=== PATIENT | female | born 1995 ===

== ENCOUNTER 2025-01-05 10:47 | Inpatient (IN) | payer OTHER ==
[~2025-01-05] VITALS: Ht 190.5 cm; Wt 77.5 kg
[2025-01-05] MEDS ORDERED: HydrOXYzine Pamoate 50 MG Cap PO PRN (11:10)
[2025-01-05] MEDS ORDERED: DiphenhydrAMINE HCl 50 MG Cap PO PRN (11:15)
[2025-01-05] MEDS ORDERED: Acetaminophen 325 MG TABLET PO PRN (11:15)
[2025-01-05] MEDS ORDERED: Haloperidol 5 MG Tab PO PRN (11:15)
[2025-01-05] MEDS ORDERED: DiphenhydrAMINE HCl 50 MG/ML 1ML Vial IV PRN (11:15)
[2025-01-05] MEDS ORDERED: Calcium Carbonate 500 MG Tab Chew PO PRN (11:15)
[2025-01-05] MEDS ORDERED: Aluminum Hydroxide 320MG/5ML 473 ML PO PRN (11:15)
[2025-01-05] MEDS ORDERED: Haloperidol Lactate Inj. 5 MG/ML Injection IM PRN (11:15)
[2025-01-05] MEDS ORDERED: Polyethylene Glycol 3350 17 gm PO PRN (11:20)
[2025-01-05] MEDS ORDERED: TraZODone HCl 50 MG Tab PO PRN (11:20)
[2025-01-05] MEDS ORDERED: OLANZapine ODT 10 MG Tab MM PRN (11:20)
[2025-01-05] MEDS ORDERED: Melatonin 3 MG Tab PO PRN (11:20)
[2025-01-05] MEDS ORDERED: LORazepam 2 MG/ML 1ML Injection IM PRN (11:20)
[2025-01-05] MEDS ORDERED: Ibuprofen 600 MG Tab PO PRN (11:25)
[2025-01-05] MEDS ORDERED: LORazepam 2 MG Tab PO PRN (11:25)
[2025-01-05 14:00] VITALS: BP 104/66
[2025-01-05] MEDS ORDERED: Ondansetron 4 MG SoluTab MM PRN (14:25)
[2025-01-05] MEDS ORDERED: ACEBUTOLOL HCL PO (14:36)
[2025-01-05] MEDS ORDERED: HYDHCL25 PO (14:36)
[2025-01-05] MEDS ORDERED: PROG100 PO (14:37)
[2025-01-05] MEDS ORDERED: SERT50 PO (14:37)
[2025-01-05] MEDS ORDERED: ESTR2 PO (14:38)
[2025-01-05] MEDS ORDERED: ALDACTONE100 MG PO (14:39)
--- NOTE | 2025-01-05 15:06 | NUR ---
ADMISSION NOTE PT ADMITTED FROM [facility]. PT ATTEMPTED SUICIDE BY SWALLOWING 50+ OF HER ACEBUTOLOL. SHE LEFT A NOTE FOR HER TO NOT COME IN THE BATHROOM AND TO JUST CALL AN AMBULANCE. PT'S FOUND PT AND CALLED IN TIME. PT HAS A HX OF ATTEMPTING SUICIDE 6 YEARS AGO AND HAS RECENTLY BEEN EXPERIENCING SEVERAL STRESSORS. PT LOST HER JOB AT [employer] DUE TO HEALTH REASONS AND WAS DENIED UNEMPLOYMENT. SHE HAS BEEN STRUGGLING TO PAY RENT AND FEELS LIKE A BURDEN. 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 SHE LIVES WITH HER BUT HAS ANOTHER SIGNIFICANT OTHER THAT DOES NOT LIVE IN THE HOUSE. SIGNIFICANT OTHER AND HELPED COVER THE PATIENT'S PORTION OF THE RENT BUT UNFORTUNATELY IT WAS STILL NOT ENOUGH. THE COMBINATION OF STRESSORS IS WHAT LED HER TO ATTEMPT. PT ORIENTED TO THE UNIT AND SHOWERED UPON ARRIVAL.
[2025-01-05 20:17] VITALS: BP 103/75
--- NOTE | 2025-01-06 06:15 | NUR ---
SHIFT SUMMARY Pt is A&O, calm, cooperative, eye contact is appropriate. Pt stated her mood was "numb," presents as sad and depressed, affet is constricted. Pt denies current SI, HI, hallucinations, and pain. Second Operator interviewed pt in her room. After assessment, pt asked to watch TV. She ate a snack with peers, had VS taken, and returned to her room. Pt has no sked HS meds, but did ask for PRN melatonin and trazodone. Staff continues to monitor q15m for safety and wellness.
[2025-01-06 07:37] LABS: CHOL/HDL RATIO 2.9; Cholesterol 149 mg/dL (50-200); HDL Cholesterol 52 mg/dL (>39); LDL/HDL RATIO 1.5; Low Density Lipoprotein Chol 78 mg/dL (0-110); Triglycerides 94 mg/dL (30-140); Very Low Density Lipoprot Chol 18 mg/dL (6-28)
[2025-01-06 08:36] VITALS: BP 100/61
[2025-01-06] MEDS ORDERED: Multivitamins 1 Tab PO SCH (09:00)
--- NOTE | 2025-01-06 18:20 | NUR ---
SHIFT SUMMARY PT A/O X4; PLEASANT AND COOPERATIVE WITH CARE. SHE DENIES SI, HI, OR ANY HALLUCINATIONS. HER AFFECT IS FLAT/DEPRESSED AND SHE REPORTS THAT SHE STILL FEELS "NUMB". SHE HAS BEEN ACTIVE ON THE MILEU THIS SHIFT AND VISITED WITH HER . SHE IS MONITORED VIA Q15 ROUNDING FOR SAFETY AND WELLNESS.
[2025-01-06 20:29] VITALS: BP 123/73
[2025-01-06] MEDS ORDERED: Progesterone, Micronized 100 MG Cap PO SCH (21:00)
--- NOTE | 2025-01-07 05:33 | NUR ---
SHIFT SUMMARY Pt is A&O, calm, cooperative, eye contact is appropriate. Pt states that her mood is "tired," but better than it has been. Pt denies SI, HI, hallucinations, and current pain. Pt stated that she if feeling better that she did at admission and earlier in the day. She stated that her depression has improved from 9/10w yesterda to 8/10w this evening. Pt reports that her last BM was 01/03/25 and said she will request a PRN for constipation in the morning; technical writer and editor will pass this on during shift change. Provider has restarted pt's hormone meds, for which she is grateful. Pt was out of her room for snack, VS, and meds. She received PRN melatonin and trazodone with her HS meds. Staff continues to monitor q15m for safety and wellness.
[2025-01-07 08:08] VITALS: BP 107/69
--- NOTE | 2025-01-07 08:26 | NUR ---
SHIFT ASSESSMENT: PT DENIED SI, HI, AVH AND PAIN. SHE ENDORSED ANXIETY 5/10w AND DESCRIBED HER MOOD , "I'M DEPRESSED." AND RATED THE DEPRESSIONS 8/10w. PT'S AFFECT WAS CONGRUENT WITH STATED MOOD. PT IS PRESENTLY TAKING A SHOWER.
[2025-01-07] MEDS ORDERED: ARIPiprazole 5 MG Tab PO SCH (09:00)
[2025-01-07] MEDS ORDERED: Spironolactone 50 MG Tab PO SCH (09:00)
[2025-01-07] MEDS ORDERED: Atenolol 50 MG Tab PO SCH (09:00)
[2025-01-07] MEDS ORDERED: Sertraline HCl 100 MG Tab PO SCH (09:00)
[2025-01-07] MEDS ORDERED: Estradiol 1 MG Tab PO SCH (09:00)
--- NOTE | 2025-01-07 15:02 | NUR ---
PT COMPLAINED EARLIER OF DISCOMFORT ABOUT EATING BUT DENIED NAUSEA. PT REPORTED THAT THE STOMACH DISCOMFORT IS GONE AND IS JUST FEELING TIRED. PT IS LAYING IN BED READING.
--- NOTE | 2025-01-07 18:05 | NUR ---
PT ATE DINNER AND IS PRESENTLY LAYING ON HER BED. NO COMPLAINTS THIS AFTERNOON.
[2025-01-07 20:11] VITALS: BP 124/70
--- NOTE | 2025-01-08 04:58 | NUR ---
BELL VALET SUMMARY Patient is alert and oriented, cooperative and pleasant with both her peers and the staff. Affect goes between euthymic and flat. Denied SI,HI and AVTH at time of evening assessment. Will continue close monitoring every 15 minutes for safety and comfort
[2025-01-08 07:18] VITALS: BP 103/70
[2025-01-08 08:47] VITALS: BP 110/71
[2025-01-08] MEDS ORDERED: ARIPiprazole 10 MG Tab PO SCH (09:00)
[2025-01-08] MEDS ORDERED: Spironolactone 50 MG Tab PO SCH (18:00)
[2025-01-08 19:49] VITALS: BP 117/86
[2025-01-08] MEDS ORDERED: Sertraline HCl 100 MG Tab PO SCH (21:00)
[2025-01-08] MEDS ORDERED: OLANZapine 10 MG Tab PO SCH (21:00)
--- NOTE | 2025-01-09 04:22 | NUR ---
SHIFT SUMMARY: PATIENT WAS IN THE DAY ROOM AT THE BEGINNING OF THE SHIFT, WATCHING A MOVIE WITH STAFF AND PEERS. SHE PARTICIPATED IN SNACK TIME AND WRAP UP GROUP. SHE WAS COMPLIANT WITH EVENING MEDICATIONS. SHE WAS PLEASANT AND FRIENDLY WITH STAFF AND PEERS. SHE HAD NO ISSUES OR CONCERNS THIS SHIFT. SHE DENIED THOUGHTS OF SUICIDAL IDEATION OR SELF HARMING. SHE WENT TO HER ROOM AFTER SNACK AND TOOK A SHOWER, THEN WENT TO BED WHERE SHE WAS NOTED TO BE RESTING QUIETLY WITH EYES CLOSED AND RESPIRATIONS CONFIRMED FOR THE REMAINDER OF THE SHIFT. CONTINUING TO MONITOR FOR SAFETY WITH Q15 MINUTE CHECKS.
[2025-01-09 08:30] VITALS: BP 120/80
--- NOTE | 2025-01-09 14:26 | NUR ---
IMPORTANT DISCHARGE INFORMATION PATIENT HAS FOLLOW UP PCP/TD APPOINTMENT ON Tuesday01/17/[address] MAGALI STEWARD AT 2:20PM. LOCATED AT [facility]. PHARMACY: [facility] JEWELRY FINISHER AT 1:00PM
--- NOTE | 2025-01-09 17:38 | NUR ---
SHIFT SUMMARY: PT A/O X4. PLEASANT AND COOPERATIVE. PT HAS PARTICIPATED IN GROUPS AND INTERACTED WELL WITH PEERS IN THE [place]. DENIES TO BE SI, HI AND AVH. ANXIETY LEVEL IS 3/10 AND DEPRSSION LEVEL IS 5/10. COMPLIANT IN MEALS AND MEDS. HAS BEEN READING HER BOOKS WHEN OT IN GROUPS. PT STATES SHE IS GETTING BETTER. TALKED WITH ON THE PHONE. WILL CONTINUE TO MONITOR
[2025-01-09] MEDS ORDERED: Spironolactone 50 MG Tab PO SCH (18:00)
[2025-01-09 19:59] VITALS: BP 111/81
[2025-01-09] MEDS ORDERED: Sertraline HCl 100 MG Tab PO SCH (21:00)
--- NOTE | 2025-01-10 04:21 | NUR ---
SHIFT SUMMARY PT PRESENT IN [place] AT START OF SHIFT. SHE STATES HER MOOD IS "GOOD". DENIES ANY SI, HI, THOUGHTS OF SELF HARM OR HALLUCINATIONS. PT HAD EVENING SNACK WAS COMPLIANT WITH MEDICATIONS. SHE RECEIVED PRN MELATONIN AND HAS APPEARED TO SLEEP THROUGHOUT THE NIGHT, WITH RESPIRATIONS CONFIRMED. Q15 MINUTE CHECKS TO CONTINUE PER UNIT PROTOCOL/PT SAFETY.
[2025-01-10 08:08] VITALS: BP 134/95
--- NOTE | 2025-01-10 11:42 | NUR ---
PT A/O X4. WAS AWAKE AT 0730 THIS AM. LAYING IN BED READING. PT DENIES TO BE SI, HI AND AVH. ANXIETY LEVEL IS 2/10 AND DEPRESSION LEVEL IS 4/10. PT FEELS SHE IS GETTING BETTER AND PREPARING TO GO HOME. STATES SHE HAS GOOO SUPPORT FOR HERSELF WITH HER AND FRIENDS. COMPLIANT WITH PARTICIPATION AND MEDICATIONS. WILL CONTINUE TO MONITOR.
--- NOTE | 2025-01-10 17:26 | NUR ---
SHIFT SUMMARY: PT A/O X4. PLEASANT AND COOPERATIVE. DENIES TO BE SI,HI AND AVH. HAS PAARTICIPTED IN GROUPS. MED COMPLINT. ANXIETY LEVEL 11/12 AND DEPRESSION 01/10 TODAY. PT PRESENTS HERSELF POSITIVE AND BRIGHT. INTERACTS WITH PEERS WELL. NO ISSUES THIS SHIFT. WILL CONTINUE TO MONITOR.
[2025-01-10 21:08] VITALS: BP 115/78
--- NOTE | 2025-01-11 04:07 | NUR ---
SHIFT SUMMARY PT IN [place] AT START OF SHIFT. SHE INTERACTS WITH STAFF AND PEERS. SHE DENIES ANY SI OR THOUGHTS OF SELF HARM. PT STATES HER ANXIETY IS AT HER BASELINE OF 2 OUT OF 10 AND HER DEPRESSION IS ALSO AT HER BASELINE OF 3-4 OUT OF 10. PT STATES SHE IS LOOKING FORWARD TO GOING HOME. SHE HAD EVENING SNACK. COMPLIANT WITH MEDICATIONS AND RECEIVED PRN DOSE OF MELATONIN. SHE HAS APPEARED TO SLEEP THROUGHOUT THE NIGHT, WITH RESPIRATIONS CONFIRMED. Q15 MINUTE CHECKS TO CONTINUE PER UNIT PROTOCOL/PT SAFETY.
[2025-01-11] MEDS ORDERED: SERT100 PO (04:43)
[2025-01-11] MEDS ORDERED: ATEN50 PO (04:45)
[2025-01-11] MEDS ORDERED: MELA3 PO (04:46)
[2025-01-11] MEDS ORDERED: ONE DAILY ESS400 MCG PO (04:49)
[2025-01-11] MEDS ORDERED: OLAN10 PO (04:50)
[2025-01-11 07:52] VITALS: BP 111/87
--- NOTE | 2025-01-11 10:58 | NUR ---
PATIENT CONTACT INFORMATION Patient phone number [phone], voicemail okay if unavailable
--- NOTE | 2025-01-11 13:20 | NUR ---
DISCHARGE NOTE PT GIVEN D/C INSTRUCTION PACKET. ALL QUESTIONS ANSWERED. MEDICATIONS WERE FAXED TO [facility] PER PT REQUEST. D/C FORM SIGNED. PT GIVEN BELONINGS FROM [facility] AND DRESSED SELF IN OWN CLOTHING. TRANSPORTATION PROVIDED BY PT'S FRIEND. PT AMBULATED OUT OF FACILITY, ALL BELONGINGS WITH PT AT TIME OF D/C HOME.
== END 2025-01-11 13:15 | disposition home or self-care (01) | DRG 885 ==
LOC: BHU 10:47
PROVIDERS: ADMIT Student in an Organized Health Care Education/Training Program
DX: F33.2 Major depressive disorder, recurrent severe without psychotic features (principal); R45.851 Suicidal ideations; R45.84 Anhedonia; Z79.899 Other long term (current) drug therapy
CPT/HCPCS: 36415; 80061; 83036; 93005; 93010; A9270